=== PATIENT | male | born 1935 | race Caucasian/White ===

== ENCOUNTER 2016-06-08 13:12 | Emergency (ER) | payer OTHER, MEDICARE ==
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
== END 2016-06-08 13:53 | disposition home or self-care (01) ==
LOC: ER 13:12
DX: S60.222A Contusion of left hand, initial encounter (principal); Z79.899 Other long term (current) drug therapy; V89.2XXA Person injured in unspecified motor-vehicle accident, traffic, initial encounter